=== PATIENT | male | born 1980 | race African-American/Black ===

== ENCOUNTER 2021-07-09 14:02 | Emergency (ER) | payer SELFPAY ==
[2021-07-09 14:25] VITALS: TEMP 98; BMI 45.0
[2021-07-09] MEDS ORDERED: IBUPROFEN 600 MG TABLET (FP) PO ONE ×2 (14:51→14:53)
[2021-07-09 15:07] VITALS: BP 169/99; PULSE 79
== END 2021-07-09 15:12 | disposition home or self-care (01) ==
LOC: JER 14:02 → JERFT 14:02
DX: M25.571 Pain in right ankle and joints of right foot (principal)
CPT/HCPCS: 73630-TC-RT-FY; 99283-25

== ENCOUNTER 2023-10-18 23:46 | Emergency (ER) | payer OTHER ==
[2023-10-18 23:53] VITALS: BP 146/96; PULSE 98; RESP 16; TEMP 97.9; BMI 46.3
[2023-10-19] MEDS: diphenhydrAMINE HCL 25 MG CAPSULE (FP) PO ONE (01:02)
[2023-10-19] MEDS ORDERED: predniSONE 20 MG TABLET (UD) ONE (01:04)
[2023-10-19] MEDS ORDERED: predniSONE 10 MG TABLET (UD) ONE (01:04)
[2023-10-19] MEDS: predniSONE 20 MG TABLET (UD) PO ONE (01:13)
== END 2023-10-19 01:26 | disposition home or self-care (01) ==
LOC: JER 23:46
DX: N50.89 Other specified disorders of the male genital organs (principal); R21 Rash and other nonspecific skin eruption
CPT/HCPCS: 99283-25